=== PATIENT | female | born 1960 | race Caucasian/White ===

== ENCOUNTER → 2016-05-12 | Outpatient (CLI) | payer BC ==
[~2016-05-12] MED LIST: ASCO1CAP3 PO; CALC8.5C PO; MULT-506 PO; TAMO20TA47 PO; nasonex INTNAS
[2016-05-12 15:30] VITALS: BP 179/88; PULSE 68; TEMP 36.5; O2SAT 100
--- NOTE | 2016-05-12 16:47 | Radiation Oncology Follow-Up ---
Radiation Oncology Follow-Up Date of Visit May 12, 2016. (Viv De Dios PA-C) Reason For Visit One-month follow-up and cancer survivorship care plan (Viv De Dios PA-C) Radiation Completion Date 04/06/16 (Viv De Dios PA-C) Diagnosis (1) Breast cancer of upper-outer quadrant of left female breast Status: Acute Onset Date: 12/03/2015 Histology Subtype: ductal Stage: ll (A) Permanent Comment: Abnormal left breast mammogram Status post ultrasound-guided biopsy 12/03/2015 revealing infiltrating ductal carcinoma grade 1 Estrogen receptor was positive, progesterone receptor positive, HER-2/parrish negative Status post lumpectomy and sentinel lymph node biopsy 12/27/2015 Stage pT1c pN1a M0 Positive deep margin Oncotype DX score of 10 Status post completion of radiation therapy 04/06/2016 received 6640 cGy, treatment to the left breast supraclavicular area and axilla Last Edited By: Viv De Dios on May 12, 2016 16:39 (Viv De Dios PA-C) History of Present Illness Ms. Alonzo is a 55-year-old female without a family history of breast cancer. The patient was being followed with screening mammograms. Her most recent bilateral digital screening mammogram was on 11/19/2015. This was compared to a study one year earlier on 11/16/2015. This latest study showed a new irregular 1.9 cm mass seen within the left upper outer quadrant far posteriorly. Spot compression total synthesis fuse a left XCCL and possible breast ultrasound were recommended for further evaluation. On 11/26/2015 the patient underwent a unilateral left digital diagnostic mammogram and targeted left breast ultrasound. This again identified an irregular 1.9 x 1.7 x 1.5 cm mass in the upper outer far posterior portion of the left breast. No clustered microcalcifications were noted. Real-time high-resolution sonographic evaluation was performed. During the study the patient reported that she felt a mass at the 2:00 left breast position 3 cm from the nipple. On ultrasound there was a bilobed hypoechoic solid vascular mass with angular and indistinct borders. It measured 1.4 x 0.95 x 1.7 cm. This correlated with the palpable abnormality and with the mammographic mass. A few morphologically normal lymph nodes were identified within cortices measuring in the left axilla less than 1 mm. Ultrasound-guided biopsies were recommended. On 12/03/2015 the patient underwent an ultrasound-guided core biopsy of the left breast at the 1 to 2 o'clock position. This revealed an infiltrating ductal carcinoma grade 1 of 3 with no in situ component identified. No perineural or lymphovascular space invasion was identified. Estrogen receptors were positive (95%, strong). Progesterone receptors were positive (95%, strong) . HER-2/parrish was negative (1+). The tumor cells were negative for HER-2/parrish amplification by FISH analysis confirming the negative results obtained by immunohistochemistry. Ki-67 was less than 5% of cells positive. Case: [id number]. The patient was seen by Dr. Aden Sheridan to discuss treatment options. He discussed breast conserving therapy which the patient agreed. Therefore on 12/27/2015 the patient underwent a left rest partial mastectomy and sentinel node biopsy. The partial mastectomy specimen revealed an infiltrating lesion measuring 2.0 x 2.0 x 1.0 cm. This was again a grade 1 lesion. DCIS was noted at was intermediate grade without necrosis. No lymphovascular or perineural invasion was seen. The margins of the invasive carcinoma were evaluated and were involved by invasive carcinoma. The specified margin was the deep margin. In discussion with Dr. Sheridan clinically noted the muscle fascia tented at the lesion but did not clinically invade through the fascia. Additional muscle fibers were included as part of the tissue specimen and did not show evidence of invasion. His clinical impression is that the lesion has been completely excised. 2 lymph nodes were taken. Each of the 2 lymph nodes revealed evidence of small deposits of metastatic carcinoma. In the smaller lymph node there were 3 discrete foci present and in the larger lymph node 7 foci were identified. They stated that this may over estimate the number of deposits as some of these could represent 1 deposit transected. No individual discrete focus was greater than 0.2 cm with the majority being approximately 0.1 or 0.15 cm. This generally would correlate with an N1mi designation. The larger lymph node showed a clear focus of tumor growing into the fat adjacent to the lymph node consistent with extranodal extension. Histologically the pathologist felt this was more consistent with an N1a stage. Therefore the final pathologic stage was pT1c pN1a, ER positive, W[place] positive and HER-2/parrish negative. Case: [id number]. Her tissue was sent for gene analysis by Oncotype DX. This showed a recurrence score of 10 which places her in the low risk category. The patient did go for a second opinion to [facility] prior to her lumpectomy and her slides were reviewed by their laboratory. They confirm the diagnosis is infiltrating ductal , well-differentiated, ER/WV positive with a Ki-67 proliferation index of 2%. Pathology # [id number]. The patient was subsequently seen by Dr. Gregorio Pena for discussion of the role of adjuvant therapy. Based on the Oncotype DX recurrence score of 10 it was felt the patient would be best served by an anti- estrogen therapy. Tamoxifen was recommended. Patient however is on Premarin and is in the process of tapering this dose to stop the Premarin prior to initiation of the anti-estrogen therapy. We were asked to see the patient in referral to discuss with her the role of adjuvant radiation. It is for this reason the patient is seen in referral. She sought a third opinion and saw Dr Massimo Sousa. He was in agreement that she did not need systemic chemotherapy. She will return to our office to undergo CT simulation and then treatment. She received conventional treatment. Radiation ended in 04/06/2016. She received 6640 cGy. (Viv De Dios PA-C) Interim History She's been doing well over the past month. The skin irritation has steadily resolved. She does have some mild tanning as a residual. The past 2 weeks she has developed some increased discomfort in the upper anterior chest wall that radiates towards the left shoulder. This occurs with stretching and movement of the arm. This discomfort is noted when applying pressure to the chest wall and anterior shoulder. She has noticed no redness or swelling. She has noted no masses or changes of the axilla. She's had no swelling of her arm. Follow- up mammography is currently not scheduled. She plans to discuss this with Dr. Sheridan. She'll once to have tomosynthesis and would like to have this at a facility other than the breast Center. We discussed having mammography in [place] but she believes they do not have the tomographic ability. (Viv De Dios PA-C) Allergies Coded Allergies: No Known Allergies (Unverified , 01/08/12) Home Medications Scheduled Ascorbic Acid (Vitamin C), 2 CAP PO DAILY Calcium W/ Vitamins D & K (Viactiv), 1 TAB PO DAILY Scheduled PRN [nasonex], 2 SPRAYS INTNAS DAILY PRN for Nasal Congestion Review of Systems Gastrointestinal: Symptoms: WNL Oral: Symptoms: No Problems Respiratory: Symptoms: WNL Urinary: Symptoms: WNL Skin: Symptoms: No Problems Breast: Right Upper Arm Measurement: 26.8 Right Mid Arm Measurement: 24.0 Right Wrist Measurement: 15.1 Left Upper Arm Measurement: 27.1 Left Mid Arm Measurement: 23.7 Left Wrist Measurement: 15.0 Arm Dominence: Right (Viv De Dios PA-C) Physical Exam Vital Signs Date Time Temp Pulse Resp B/P Pulse Ox O2 Delivery O2 Flow Rate FiO2 05/12/16 15:30 36.5 68 16 179/88 100 Fatigue: None General Appearance: no apparent distress Eyes: normal inspection, EOMI ENT: normal ENT inspection, hearing grossly normal Neck: no adenopathy, thyroid normal Respiratory/Chest: lungs clear, no respiratory distress, no accessory muscle use Breast: Breast examination reveals hyperpigmentation of the left breast. There is mild tenderness to palpation in the upper inner portion of the breast. There is tenderness in the upper outer portion of the breast. She had tenderness in the supraclavicular area as well as the left shoulder. This is very mild. There is full range of motion of the shoulder. There are no masses or tenderness no axillary adenopathy. She has no skin retractions or nipple changes. Using the Matlock score cosmesis she has a good outcome. The right breast showed no masses or tenderness and no axillary adenopathy. Cardiovascular: regular rate, rhythm, no gallop, no murmur Abdomen: non tender, soft Extremities: no pedal edema Neurologic/Psychiatric: no motor/sensory deficits, alert, normal mood/affect Skin: warm/dry Lymphatic: no adenopathy (Viv De Dios PA-C) Assessment & Plan Plan: The patient was also seen today by Dr. Sousa. We discussed with her that the discomfort of the chest wall and shoulder is likely inflammation. The patient steadily improve with time. She does not feel that the discomfort warrants the use of ibuprofen. She has an appointment with Dr. Sousa for medical oncology to discuss antiestrogen therapy. She has a follow-up appointment with Dr. Sheridan. She is going to discuss with him follow-up mammography and where he would recommend for her to continue her follow-up studies. Today we completed a cancer survivorship care plan. A copy of the document was given to the patient. She was given a survivorship booklet. We asked her to return to our office in 6 months. She may call if she has any questions or concerns in the interim. (Viv De Dios PA-C) I agree with note created by Viv De Dios PA-C. I reviewed the patient's chart and information with her. I have examined and evaluated the patient. I reviewed relevant clinical information and answered the patient's and/or family' s questions. (Veeral. Sousa MD) Total Time In Follow-Up I spent 20 minutes speaking to the patient performing examination. I spent 20 minutes reviewing information, completing the survivorship document, and completing this note. (Viv De Dios PA-C) I spent 15 minutes examining and counseling the patient. (Veeral. Sousa MD) Copy To Aden Sheridan M.D.; Jenny Cochran D.O.; Massimo Sousa M.D.
== END | disposition home or self-care (01) ==
LOC: C.ONC 15:26
PROVIDERS: ATTEND Radiology Radiation Oncology
DX: Z08 Encounter for follow-up examination after completed treatment for malignant neoplasm (principal); Z92.3 Personal history of irradiation; Z85.3 Personal history of malignant neoplasm of breast

== ENCOUNTER → 2016-06-30 | Outpatient (CLI) | payer BC ==
[~2016-06-30] MED LIST changes: -MULT-506 PO; -TAMO20TA47 PO; +TAMO20TA9 PO
== END | disposition home or self-care (01) ==
LOC: C.PAPS 17:33
PROVIDERS: ATTEND Obstetrics & Gynecology
DX: Z01.419 Encounter for gynecological examination (general) (routine) without abnormal findings (principal)

== ENCOUNTER → 2016-10-14 | Outpatient (CLI) | payer BC ==
[~2016-10-14] MED LIST changes: +TAMO20TA47 PO; -TAMO20TA9 PO
[2016-10-14 13:04] VITALS: BP 160/90; PULSE 62; TEMP 36.7; O2SAT 94
--- NOTE | 2016-10-14 16:44 | Radiation Oncology Follow-Up ---
Radiation Oncology Follow-Up Date of Visit Oct 14, 2016. (Viv De Dios PA-C) Reason For Visit 6 month follow-up (Viv De Dios PA-C) Radiation Completion Date 04/06/16 (Viv De Dios PA-C) Diagnosis (1) Breast cancer of upper-outer quadrant of left female breast Status: Acute Onset Date: 12/03/2015 Histology Subtype: ductal Stage: ll (K) Permanent Comment: Abnormal left breast mammogram Status post ultrasound-guided biopsy 12/03/2015 revealing infiltrating ductal carcinoma grade 1 Estrogen receptor was positive, progesterone receptor positive, HER-2/parrish negative Status post lumpectomy and sentinel lymph node biopsy 12/27/2015 Stage pT1c pN1a M0 Positive deep margin Oncotype DX score of 10 Status post completion of radiation therapy 04/06/2016 received 6640 cGy, treatment to the left breast supraclavicular area and axilla Last Edited By: Viv De Dios on May 12, 2016 16:39 (Viv De Dios PA-C) History of Present Illness Ms. Alonzo is a 55-year-old female without a family history of breast cancer. The patient was being followed with screening mammograms. Her most recent bilateral digital screening mammogram was on 11/19/2015. This was compared to a study one year earlier on 11/16/2015. This latest study showed a new irregular 1.9 cm mass seen within the left upper outer quadrant far posteriorly. Spot compression total synthesis fuse a left XCCL and possible breast ultrasound were recommended for further evaluation. On 11/26/2015 the patient underwent a unilateral left digital diagnostic mammogram and targeted left breast ultrasound. This again identified an irregular 1.9 x 1.7 x 1.5 cm mass in the upper outer far posterior portion of the left breast. No clustered microcalcifications were noted. Real-time high-resolution sonographic evaluation was performed. During the study the patient reported that she felt a mass at the 2:00 left breast position 3 cm from the nipple. On ultrasound there was a bilobed hypoechoic solid vascular mass with angular and indistinct borders. It measured 1.4 x 0.95 x 1.7 cm. This correlated with the palpable abnormality and with the mammographic mass. A few morphologically normal lymph nodes were identified within cortices measuring in the left axilla less than 1 mm. Ultrasound-guided biopsies were recommended. On 12/03/2015 the patient underwent an ultrasound-guided core biopsy of the left breast at the 1 to 2 o'clock position. This revealed an infiltrating ductal carcinoma grade 1 of 3 with no in situ component identified. No perineural or lymphovascular space invasion was identified. Estrogen receptors were positive (95%, strong). Progesterone receptors were positive (95%, strong) . HER-2/parrish was negative (1+). The tumor cells were negative for HER-2/parrish amplification by FISH analysis confirming the negative results obtained by immunohistochemistry. Ki-67 was less than 5% of cells positive. Case: [id number]. The patient was seen by Dr. Aden Sheridan to discuss treatment options. He discussed breast conserving therapy which the patient agreed. Therefore on 12/27/2015 the patient underwent a left rest partial mastectomy and sentinel node biopsy. The partial mastectomy specimen revealed an infiltrating lesion measuring 2.0 x 2.0 x 1.0 cm. This was again a grade 1 lesion. DCIS was noted at was intermediate grade without necrosis. No lymphovascular or perineural invasion was seen. The margins of the invasive carcinoma were evaluated and were involved by invasive carcinoma. The specified margin was the deep margin. In discussion with Dr. Sheridan clinically noted the muscle fascia tented at the lesion but did not clinically invade through the fascia. Additional muscle fibers were included as part of the tissue specimen and did not show evidence of invasion. His clinical impression is that the lesion has been completely excised. 2 lymph nodes were taken. Each of the 2 lymph nodes revealed evidence of small deposits of metastatic carcinoma. In the smaller lymph node there were 3 discrete foci present and in the larger lymph node 7 foci were identified. They stated that this may over estimate the number of deposits as some of these could represent 1 deposit transected. No individual discrete focus was greater than 0.2 cm with the majority being approximately 0.1 or 0.15 cm. This generally would correlate with an N1mi designation. The larger lymph node showed a clear focus of tumor growing into the fat adjacent to the lymph node consistent with extranodal extension. Histologically the pathologist felt this was more consistent with an N1a stage. Therefore the final pathologic stage was pT1c pN1a, ER positive, [place] positive and HER-2/parrish negative. Case: [id number]. Her tissue was sent for gene analysis by Oncotype DX. This showed a recurrence score of 10 which places her in the low risk category. The patient did go for a second opinion to [facility] prior to her lumpectomy and her slides were reviewed by their laboratory. They confirm the diagnosis is infiltrating ductal , well-differentiated, ER/NC positive with a Ki-67 proliferation index of 2%. Pathology # [id number]. The patient was subsequently seen by Dr. Gregorio Pena for discussion of the role of adjuvant therapy. Based on the Oncotype DX recurrence score of 10 it was felt the patient would be best served by an anti- estrogen therapy. Tamoxifen was recommended. Patient however is on Premarin and is in the process of tapering this dose to stop the Premarin prior to initiation of the anti-estrogen therapy. We were asked to see the patient in referral to discuss with her the role of adjuvant radiation. It is for this reason the patient is seen in referral. She sought a third opinion and saw Dr Massimo Sousa. He was in agreement that she did not need systemic chemotherapy. She will return to our office to undergo CT simulation and then treatment. She received conventional treatment. Radiation ended in 04/06/2016. She received 6640 cGy. (Viv De Dios PA-C) Interim History Over the past 6 months she has noted a burning sensation in the area of her lumpectomy site. This becomes worse in warmer temperatures. She saw Dr. Sheridan September 02. 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 This was treated with ibuprofen 600 mg every 6 hours. She took this for 4 days and the redness of the breast resolved. She had previously seen Dr. Dr. Sol and was given a Medrol Dosepak for a similar episode. She is up-to-date on mammography. She'll be having recheck mammogram in November. She stated that there are some findings that are being followed on the mammogram. These included a 3 mm well circumscribed area at the 8 o'clock position she also was found to have edema of the skin which is a postradiation finding as well as some sebaceous cysts. She also had an ultrasound. She developed swelling of the left supraclavicular area. There was pain and discomfort especially with moving the head [id number]. She was having decreased range of motion in her shoulder. 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 She recommended that she undergo lymphedema therapy to help with the swelling that occurred in her shoulder. She reviewed this with Dr. Sheridan who wrote a prescription for her to receive the lymphedema therapy. She stated she had a proximally 16 sessions after which the edema resolved. She is doing well in regards to the neck and shoulder. She is concerned that this could possibly recur. (Viv De Dios PA-C) Allergies Coded Allergies: No Known Allergies (Unverified , 01/08/12) Home Medications Scheduled Ascorbic Acid (Vitamin C), 2 CAP PO DAILY Calcium W/ Vitamins D & K (Viactiv), 1 TAB PO DAILY Tamoxifen (Nolvadex), 10 MG PO BID [nasonex], 2 SPRAYS INTNAS DAILY Review of Systems Gastrointestinal: Symptoms: WNL Oral: Symptoms: No Problems Respiratory: Symptoms: WNL Urinary: Symptoms: WNL Skin: Symptoms: No Problems Other Skin Symptoms: Patient reports skin is discolored in the area where she received radiation Breast: Right Upper Arm Measurement: 26.5 Right Mid Arm Measurement: 23.1 Right Wrist Measurement: 14.6 Left Upper Arm Measurement: 26.9 Left Mid Arm Measurement: 22.9 Left Wrist Measurement: 14.6 Arm Dominence: Right (Viv De Dios PA-C) Physical Exam Vital Signs Date Time Temp Pulse Resp B/P (MAP) Pulse Ox O2 Delivery O2 Flow Rate FiO2 10/14/16 13:04 36.7 62 18 160/90 94 Fatigue: None General Appearance: no apparent distress Eyes: normal inspection, EOMI ENT: normal ENT inspection, hearing grossly normal Neck: supple, no adenopathy, thyroid normal Respiratory/Chest: lungs clear, no respiratory distress, no accessory muscle use Breast: Breast examination reveals well-healed incisions of the left breast. There are no masses or tenderness no axillary adenopathy. There is very slight hyperpigmentation. There are no skin retractions or nipple changes. Using the Senath score cosmesis she has a good outcome. The right breast showed no masses or tenderness and no axillary adenopathy. Cardiovascular: regular rate, rhythm, no gallop, no murmur Extremities: no pedal edema Neurologic/Psychiatric: no motor/sensory deficits, alert, normal mood/affect Skin: warm/dry (Viv De Dios PA-C) Additional Studies She had a mammogram 06/17/2016. This showed interval treatment changes. New finding reviewed above and are most likely related to treatment. No clear evidence of residual or recurrent malignancy. A short-term interval follow-up left mammogram is recommended in 6 months. The patient will also be due for routine surveillance of the right breast in 6 months. BI-RADS Category 3. (Viv De Dios PA-C) Assessment & Plan Plan: Patient is also seen and examined by Dr. Sousa. The mammogram was discussed and reviewed. We also discussed her episode of inflammation that was treated with ibuprofen. She'll continue regular follow-up with Dr. Sheridan, Dr. Sousa in medical oncology, and her primary care physician. Her next mammogram is scheduled for 11/19/2016. We asked her to return to our office in 6 months. She may call if she has any questions or concerns in the interim. (Viv De Dios PA-C) I agree with note created by Viv De Dios PA-C. I reviewed the patient's chart and information with her. I have examined and evaluated the patient. I reviewed relevant clinical information and answered the patient's and/or family' s questions. (Veeral. Sousa MD) Total Time In Follow-Up I spent 25 minutes speaking to the patient and performing examination. I spent 15 minutes reviewing information on completing this note. AK (Viv De Dios PA-C) I spent 15 minutes examining and counseling the patient. (Veeral. Sousa MD) Copy To Aden Sheridan M.D.; Jenny Cochran D.O.; Massimo Sousa M.D. Problem Qualifiers (1) Breast cancer of upper-outer quadrant of left female breast: Estrogen receptor status: positive Qualified Codes: C50.412 - Malignant neoplasm of upper-outer quadrant of left female breast; Z17.0 - Estrogen receptor positive status [ER+]
== END | disposition home or self-care (01) ==
LOC: C.ONC 12:57
PROVIDERS: ATTEND Physician Assistant Medical
DX: Z08 Encounter for follow-up examination after completed treatment for malignant neoplasm (principal); Z92.3 Personal history of irradiation; Z85.3 Personal history of malignant neoplasm of breast

== ENCOUNTER → 2017-04-14 | Outpatient (CLI) | payer BC ==
[~2017-04-14] MED LIST changes: -TAMO20TA47 PO; +TAMO20TA9 PO
[2017-04-14 15:12] VITALS: BP 147/91; PULSE 70; TEMP 36.6; O2SAT 96
--- NOTE | 2017-04-14 17:27 | Radiation Oncology Follow-Up ---
Radiation Oncology Follow-Up Date of Visit Apr 14, 2017. Reason For Visit 6 month follow-up Radiation Completion Date 04/06/16 Diagnosis (1) Breast cancer of upper-outer quadrant of left female breast Status: Resolved Onset Date: 12/03/2015 Histology Subtype: ductal Stage: ll (A) Permanent Comment: Abnormal left breast mammogram Status post ultrasound-guided biopsy 12/03/2015 revealing infiltrating ductal carcinoma grade 1 Estrogen receptor was positive, progesterone receptor positive, HER-2/parrish negative Status post lumpectomy and sentinel lymph node biopsy 12/27/2015 Stage pT1c pN1a M0 Positive deep margin Oncotype DX score of 10 Status post completion of radiation therapy 04/06/2016 received 6640 cGy, treatment to the left breast supraclavicular area and axilla Last Edited By: Viv De Dios on May 12, 2016 16:39 History of Present Illness Ms. Alonzo is without a family history of breast cancer. The patient was being followed with screening mammograms. Her most recent bilateral digital screening mammogram was on 11/19/2015. This was compared to a study one year earlier on 11/16/2015. This latest study showed a new irregular 1.9 cm mass seen within the left upper outer quadrant far posteriorly. Spot compression total synthesis fuse a left XCCL and possible breast ultrasound were recommended for further evaluation. On 11/26/2015 the patient underwent a unilateral left digital diagnostic mammogram and targeted left breast ultrasound. This again identified an irregular 1.9 x 1.7 x 1.5 cm mass in the upper outer far posterior portion of the left breast. No clustered microcalcifications were noted. Real-time high-resolution sonographic evaluation was performed. During the study the patient reported that she felt a mass at the 2:00 left breast position 3 cm from the nipple. On ultrasound there was a bilobed hypoechoic solid vascular mass with angular and indistinct borders. It measured 1.4 x 0.95 x 1.7 cm. This correlated with the palpable abnormality and with the mammographic mass. A few morphologically normal lymph nodes were identified within cortices measuring in the left axilla less than 1 mm. Ultrasound-guided biopsies were recommended. On 12/03/2015 the patient underwent an ultrasound-guided core biopsy of the left breast at the 1 to 2 o'clock position. This revealed an infiltrating ductal carcinoma grade 1 of 3 with no in situ component identified. No perineural or lymphovascular space invasion was identified. Estrogen receptors were positive (95%, strong). Progesterone receptors were positive (95%, strong) . HER-2/parrish was negative (1+). The tumor cells were negative for HER-2/parrish amplification by FISH analysis confirming the negative results obtained by immunohistochemistry. Ki-67 was less than 5% of cells positive. Case: [id number]. The patient was seen by Dr. Aden Sheridan to discuss treatment options. He discussed breast conserving therapy which the patient agreed. Therefore on 12/27/2015 the patient underwent a left rest partial mastectomy and sentinel node biopsy. The partial mastectomy specimen revealed an infiltrating lesion measuring 2.0 x 2.0 x 1.0 cm. This was again a grade 1 lesion. DCIS was noted at was intermediate grade without necrosis. No lymphovascular or perineural invasion was seen. The margins of the invasive carcinoma were evaluated and were involved by invasive carcinoma. The specified margin was the deep margin. In discussion with Dr. Sheridan clinically noted the muscle fascia tented at the lesion but did not clinically invade through the fascia. Additional muscle fibers were included as part of the tissue specimen and did not show evidence of invasion. His clinical impression is that the lesion has been completely excised. 2 lymph nodes were taken. Each of the 2 lymph nodes revealed evidence of small deposits of metastatic carcinoma. In the smaller lymph node there were 3 discrete foci present and in the larger lymph node 7 foci were identified. They stated that this may over estimate the number of deposits as some of these could represent 1 deposit transected. No individual discrete focus was greater than 0.2 cm with the majority being approximately 0.1 or 0.15 cm. This generally would correlate with an N1mi designation. The larger lymph node showed a clear focus of tumor growing into the fat adjacent to the lymph node consistent with extranodal extension. Histologically the pathologist felt this was more consistent with an N1a stage. Therefore the final pathologic stage was pT1c pN1a, ER positive, DE positive and HER-2/parrish negative. Case: [id number]. Her tissue was sent for gene analysis by Oncotype DX. This showed a recurrence score of 10 which places her in the low risk category. The patient did go for a second opinion to [facility] prior to her lumpectomy and her slides were reviewed by their laboratory. They confirm the diagnosis is infiltrating ductal , well-differentiated, ER/DE positive with a Ki-67 proliferation index of 2%. Pathology # [id number]. The patient was subsequently seen by Dr. Gregorio Pena for discussion of the role of adjuvant therapy. Based on the Oncotype DX recurrence score of 10 it was felt the patient would be best served by an anti- estrogen therapy. Tamoxifen was recommended. Patient however is on Premarin and is in the process of tapering this dose to stop the Premarin prior to initiation of the anti-estrogen therapy. We were asked to see the patient in referral to discuss with her the role of adjuvant radiation. It is for this reason the patient is seen in referral. She sought a third opinion and saw Dr Massimo Sousa. He was in agreement that she did not need systemic chemotherapy. She will return to our office to undergo CT simulation and then treatment. She received conventional treatment. Radiation ended in 04/06/2016. She received 6640 cGy. Interim History She has been doing well over the past 6 months. She does continue to have discomfort in the muscular tissue above the breast. She had developed lymphedema in the subclavicular area and the mid axillary line. She was seen at [facility] and treated. This did recur in she had a recheck visit without office. She had plan to continue follow-up but has not had any recent appointments with them. Currently the swelling is down. She describes a burning sensation in the axilla. She gives of a level III. Ibuprofen does help. She is noted no masses and no changes of the axilla. There is been no swelling of the arm. She is up-to-date on mammography. She is on tamoxifen and denies side effects. Allergies Coded Allergies: No Known Allergies (Unverified , 01/08/12) Home Medications Scheduled Ascorbic Acid (Vitamin C), 2 CAP PO DAILY Calcium W/ Vitamins D & K (Viactiv), 2 TAB PO DAILY Tamoxifen (Nolvadex), 10 MG PO BID [nasonex], 2 SPRAYS INTNAS DAILY Review of Systems Gastrointestinal: Symptoms: WNL Oral: Symptoms: No Problems Respiratory: Symptoms: WNL Urinary: Symptoms: WNL Skin: Symptoms: No Problems Other Skin Symptoms: soreness left breast per patient Breast: Right Upper Arm Measurement: 26.8 Right Mid Arm Measurement: 23.5 Right Wrist Measurement: 15.1 Left Upper Arm Measurement: 26.8 Left Mid Arm Measurement: 22.7 Left Wrist Measurement: 14.8 Arm Dominence: Right Patient Cosmetic Evaluation: Good Staff Cosmetic Evalaluation: Good Physical Exam Vital Signs Date Time Temp Pulse Resp B/P (MAP) Pulse Ox O2 Delivery O2 Flow Rate FiO2 04/14/17 15:12 36.6 70 16 147/91 96 Fatigue: None General Appearance: no apparent distress Eyes: normal inspection, EOMI ENT: normal ENT inspection, hearing grossly normal Neck: no adenopathy, thyroid normal Respiratory/Chest: lungs clear, no respiratory distress, no accessory muscle use Breast: Breast examination reveals well-healed incisions of the left breast. There are no masses or tenderness and no axillary adenopathy. There is a mild deficit in the area of the incision. This therefore mixed tissue more prominent above the incision. There is no edema of the breast for shoulder. There is no swelling of the supraclavicular area. There are no nipple changes. Using the [place] score cosmesis she has a good outcome. The right breast showed no masses or tenderness no axillary adenopathy. Cardiovascular: regular rate, rhythm, no gallop, no murmur Extremities: no pedal edema Neurologic/Psychiatric: no motor/sensory deficits, alert, normal mood/affect Skin: warm/dry Pain Management Patient Reports Pain: Yes Pain Location: Breast Initial Pain Intensity: 3 Pain Management Plan She does not require any pain management. Ibuprofen relieves the discomfort of the breast. Laboratory Laboratory Results: not applicable Pathology Pathology Results: not applicable Imaging Imaging Studies: were reviewed, and pertinent findings noted below Imaging Comments She had a mammogram 11/18/2016. This showed postsurgical and radiation changes of the left breast. Stable superficial nodule inferior left breast. Recommend continued short-term follow-up of the left breast in 6 months. Alternative choices including mammography with argelia synthesis and breast MRI if clinically warranted. This result is to Dr. Sheridan. Assessment & Plan Plan: Continue annual mammography and imaging which is scheduled for Dr. Sheridan's office. She will schedule an appointment with them on physical therapy if she continues to issues with discomfort. Recommended ibuprofen 400 mg twice a day for one week with food. To see if this would stop the current discomfort of the breast. We also discussed Zostrix for superficial nerve pain. We asked her to return to our office in 1 year. She may call if she has any questions or concerns in the interim. She'll continue follow-up with Dr. Sheridan's associate as well as her primary care physician. She also follows with medical oncology. She will continue the tamoxifen. Total Time In Follow-Up I spent 25 minutes speaking to the patient performing examination. I spent 15 minutes reviewing information in completing this note. Copy To Aden Sheridan M.D.; Jenny Cochran D.O.; Massimo Sousa M.D. Problem Qualifiers (1) Breast cancer of upper-outer quadrant of left female breast: Estrogen receptor status: positive Qualified Codes: C50.412 - Malignant neoplasm of upper-outer quadrant of left female breast; Z17.0 - Estrogen receptor positive status [ER+]
== END | disposition home or self-care (01) ==
LOC: C.ONC 15:01
PROVIDERS: ATTEND Physician Assistant Medical
DX: Z08 Encounter for follow-up examination after completed treatment for malignant neoplasm (principal); Z92.3 Personal history of irradiation; Z85.3 Personal history of malignant neoplasm of breast

== ENCOUNTER → 2017-07-13 | Outpatient (CLI) | payer BC | END | disposition home or self-care (01) | LOC: C.PAPS 14:30 | PROVIDERS: ATTEND Obstetrics & Gynecology | DX: Z01.419 Encounter for gynecological examination (general) (routine) without abnormal findings (principal) ==